=== PATIENT | male | born 1970 | race Caucasian/White ===

== ENCOUNTER 2016-08-15 21:34 | Inpatient (IN) | payer MEDICARE, OTHER ==
[2016-08-15] MEDS ORDERED: Sodium Chloride 0.9% 1,000 ML IV ONE (22:37)
--- NOTE | 2016-08-15 22:42 | C.PDOC ---
History Of Present Illness 46 year old pt with a history of hypertension and diabetes, presents to the ED with c/o of abdominal pain and x4 episodes of hematemesis today. Pt denies any blood in stool, fever, chills, or any other complaints. Time Seen by Provider: 08/15/16 22:27 Chief Complaint (Nursing): GI Problem History Per: Patient History/Exam Limitations: no limitations Onset/Duration Of Symptoms: Hrs Current Symptoms Are (Timing): Still Present Severity: Mild Associated Symptoms: Vomiting. denies: Fever, Chills Past Medical History Reviewed: Historical Data, Nursing Documentation, Vital Signs Vital Signs: Last Vital Signs Temp 98.5 F 08/15/16 21:49 Pulse 100 H 08/15/16 21:49 Resp 20 08/15/16 21:49 BP 142/92 H 08/15/16 21:49 Pulse Ox 98 08/15/16 23:23 - Medical History PMH: Diabetes, HTN, Hypercholesterolemia Family History: States: Unknown Family Hx - Social History Hx Tobacco Use: No Hx Alcohol Use: No Hx Substance Use: No - Immunization History Hx Tetanus Toxoid Vaccination: No Hx Influenza Vaccination: No Hx Pneumococcal Vaccination: No Review Of Systems Except As Marked, All Systems Reviewed And Found Negative. Constitutional: Negative for: Fever, Chills Gastrointestinal: Positive for: Vomiting, Abdominal Pain (Hematemesis 4x) Physical Exam - Physical Exam Appears: Non-toxic, No Acute Distress Skin: Warm, Dry Head: Atraumatic, Normacephalic Eye(s): bilateral: Normal Inspection Oral Mucosa: Moist Neck: Normal ROM, Supple Chest: Symmetrical Cardiovascular: Rhythm Regular, No Murmur Respiratory: Normal Breath Sounds, No Accessory Muscle Use, No Rales, No Rhonchi , No Wheezing Gastrointestinal/Abdominal: Soft, Tenderness (Epigastric tenderness), No Guarding, No Rebound Neurological/Psych: Oriented x3, Normal Speech, Normal Cognition ED Course And Treatment - Laboratory Results Result Diagrams: 08/15/16 22:40 08/15/16 22:40 O2 Sat by Pulse Oximetry: 98 (Room air) Pulse Ox Interpretation: Normal Medical Decision Making Medical Decision Making: Labs and chest X-Ray were ordered and reviewed. Pt was given Pantoprazole and IV fluids. 1240 h/h stable. rectal minimal stool, neg, pt had episode of er with blood tinged emesis. dr huma gonzalez, advises does not admit to [facility]. dr karina mortensen. paged Disposition - Disposition Disposition: HOSPITALIZED Disposition Time: 00:37 Condition: FAIR - Clinical Impression Clinical Impression: GI bleed - Scribe Statement The provider has reviewed the documentation as recorded by the Scribe zain glass All medical record entries made by the Scribe were at my direction and personally dictated by me. I have reviewed the chart and agree that the record accurately reflects my personal performance of the history, physical exam, medical decision making, and the department course for this patient. I have also personally directed, reviewed, and agree with the discharge instructions and disposition. Decision To Admit - Pt Status Changed To: Hospital Disposition Of: Inpatient - Admit Certification Admit to Inpatient:: After my assessment, the patient will require hospitalization for at least two midnights. This is because of the severity of symptoms shown, intensity of services needed, and/or the medical risk in this patient being treated as an outpatient. - InPatient: Physician Admission Certification:: pt with gi bleed, needs gi eval - . Bed Request Type: Telemetry Admitting Physician: Destiny Moretnsen Patient Diagnosis: GI bleed
[2016-08-15 22:54] LABS: BASO # 0.1 K/uL (0.0-0.2); BASO % 0.8 % (0.0-2.0); EOS # 0.1 K/uL (0.0-0.7); EOS % 1.2 % (0.0-4.0); HEMATOCRIT 47.2 % (35.0-51.0); LYMPH # 1.8 K/uL (1.0-4.3); LYMPH % 19.5 % (20.0-40.0); MEAN CORPUSCULAR HEMOGLOBIN 29.8 pg (27.0-31.0); MEAN CORPUSCULAR HGB CONC 33.7 g/dL (33.0-37.0); MEAN PLATELET VOLUME 8.4 fL (7.2-11.7); MONO # 0.6 K/uL (0.0-0.8); MONO % 6.2 % (0.0-10.0); RED CELL DISTRIBUTION WIDTH 13.7 % (11.5-14.5); WHITE BLOOD COUNT 9.4 K/uL (4.8-10.8)
[2016-08-15 22:55] LABS: MEAN CELL VOLUME 88.4 fL (80.0-94.0)
[2016-08-15 22:59] LABS: INR 1.1
[2016-08-15] MEDS ORDERED: Sodium Chloride 0.9% 1,000 ML ONE (23:01)
[2016-08-15 23:09] LABS: ALB/GLOB RATIO 1.2 (1.0-2.1); BILIRUBIN,TOTAL 0.9 mg/dL (0.2-1.3); CALCIUM 9.7 mg/dl (8.6-10.4); TOTAL PROTEIN 8.9 g/dL (6.3-8.3)
[2016-08-16] MEDS ORDERED: Pantoprazole 80 MG in Sodium Chloride 0.9% 100 ML IVP SCH (00:45)
[2016-08-16] MEDS ORDERED: Dextrose 5%/0.45% NS 1,000 ML IV ONE (02:16)
[2016-08-16] MEDS: Dextrose 5%/0.45% NS 1,000 ML IV SCH ×2 (02:28→15:46)
[2016-08-16 02:53] LABS: RBC URINE < 1 /hpf (0-3); URINE BILIRUBIN NEGATIVE (NEGATIVE); URINE BLOOD NEGATIVE (NEGATIVE); URINE COLOR Yellow (YELLOW); URINE GLUCOSE (UA) NORMAL (Normal); URINE KETONE NEGATIVE (NEGATIVE); URINE LEUKOCYTE ESTERASE NEG Leu/uL (Negative); URINE PROTEIN 1+ mg/dL (NEGATIVE); URINE UROBILINOGEN NORMAL mg/dL (0.2-1.0); WBC URINE 1 /hpf (0-5)
--- NOTE | 2016-08-16 08:37 | CP.PCM.CON ---
<Tootie Fermin - Last Filed: 08/16/16 09:16> History of Present Illness - History of Present Illness History of Present Illness: Gastroenterology Fellow/PGY4 Consult Note 46 year old male with history of Diabetes, Hypertension, Hyperlipidemia, and Chronic Kidney disease presenting with abdominal pain and vomiting. Patient describes intermittent epigastric pain for two weeks with associated nausea and intermittent vomitus. Yesterday the pain progressive to constant occurrence with severe discomfort associated with four episodes of hematemesis. Since in ER he has vomited about 10 ounces of light brown transparent fluid. Epigastric pain is described as "hurting", pain scale 8-9/10. Associated loss of appetite. Denies heartburn, indigestion, bloating, acid reflux, dysphagia, odynophagia, globus sensation, weight loss, diarrhea, constipation, hematochezia, or melena. Denies alcohol or NSAIDs use. Denies sick contacts or recent antibiotics. No prior EGD or colonoscopy. Family- denies colon cancer, stomach cancer Social-denies tobacco, alcohol, illicit drug use Surgery- head surgery (craniotomy?) Review of Systems - Review of Systems Review of Systems: A 12-point review of systems negative except for as above Past Patient History - Past Social History Smoking Status: Never Smoked - CARDIAC Hx Hypercholesterolemia: Yes Hx Hypertension: Yes - ENDOCRINE/METABOLIC Hx Diabetes Mellitus Type 2: Yes - PSYCHIATRIC Hx Substance Use: No - SURGICAL HISTORY Other/Comment: cardiac surgery. cerebral shunt. lung surgery Meds Allergies/Adverse Reactions: Allergies Allergy/AdvReac Type Severity Reaction Status Date / Time No Known Allergies Allergy Verified 08/15/16 21:49 - Medications Medications: Current Medications Amlodipine Besylate (Norvasc) 5 mg PO DAILY [facility] Pantoprazole Sodium 80 mg/ (Sodium Chloride) 100 mls @ 10 mls/hr IVP .Q10H [facility] PRN Reason: 8 MG/HR Last Admin: 08/16/16 01:21 Dose: 10 mls/hr Dextrose/Sodium Chloride (Dextrose 5%/0.45% Ns 1000 Ml) 1,000 mls @ 75 mls/hr IV .[id number] [facility] Last Admin: 08/16/16 02:28 Dose: 75 mls/hr Insulin Aspart (Novolog) 0 unit SC ACHS [facility] PRN Reason: Protocol Lisinopril (Zestril) 40 mg PO DAILY [facility] Pantoprazole Sodium (Protonix Inj) 40 mg IVP DAILY [facility] Physical Exam - Constitutional Appears: Non-toxic, No Acute Distress - Head Exam Head Exam: ATRAUMATIC, NORMOCEPHALIC - Eye Exam Eye Exam: Conjunctival injection, EOMI, PERRL Pupil Exam: PERRL. absent: Miosis, Mydriatic - ENT Exam ENT Exam: Mucous Membranes Moist, Normal Oropharynx - Neck Exam Neck exam: Positive for: Full Rom, Normal Inspection - Respiratory Exam Respiratory Exam: Clear to Auscultation Bilateral. absent: Rales, Rhonchi, Wheezes - Cardiovascular Exam Cardiovascular Exam: RRR, +S1, +S2. absent: Gallop, Rubs - GI/Abdominal Exam GI & Abdominal Exam: Normal Bowel Sounds, Soft, Tenderness. absent: Distended, Firm, Organomegaly, Rebound Additional comments: epigastric pain to palpation - Extremities Exam Extremities exam: Positive for: full ROM. Negative for: pedal edema - Neurological Exam Neurological exam: Alert - Psychiatric Exam Psychiatric exam: Normal Affect, Normal Mood - Skin Skin Exam: Dry, Intact, Normal Color, Warm Results - Vital Signs Recent Vital Signs: Last Vital Signs Temp 99 F 08/16/16 07:15 Pulse 98 H 08/16/16 07:15 Resp 16 08/16/16 07:15 BP 127/95 H 08/16/16 07:15 Pulse Ox 98 08/16/16 07:15 - Labs Result Diagrams: 08/15/16 22:40 08/15/16 22:40 Labs: Laboratory Results - last 24 hr 08/16/16 07:16 POC Glucose (mg/dL) 98 Assessment & Plan - Assessment and Plan (Free Text) Assessment: 46 year old male with history of Diabetes, Hypertension, Hyperlipidemia, and Chronic kidney disease presenting with epigastric pain and hematemesis. Laboratory findings with likely hemoconcentration, dehydration, and renal insufficiency on chronic kidney disease. No prior EGD or colonoscopy. Plan: >concern for upper GI bleed: Jasmin-Valerio tear, PUD, Gastritis >continue PPI gtt >H/H with likely hemoconcentration due to dehydration and recurrent vomitus >continue IVFs-LANA on CKD, volume resuscitation >NPO >EGD this AM >further recommendations after EGD <Yakov Sheppard - Last Filed: 08/16/16 09:28> Meds - Medications Medications: Current Medications Amlodipine Besylate (Norvasc) 5 mg PO DAILY [facility] Pantoprazole Sodium 80 mg/ (Sodium Chloride) 100 mls @ 10 mls/hr IVP .Q10H [facility] PRN Reason: 8 MG/HR Last Admin: 08/16/16 01:21 Dose: 10 mls/hr Dextrose/Sodium Chloride (Dextrose 5%/0.45% Ns 1000 Ml) 1,000 mls @ 75 mls/hr IV .[id number] [facility] Last Admin: 08/16/16 02:28 Dose: 75 mls/hr Insulin Aspart (Novolog) 0 unit SC ACHS [facility] PRN Reason: Protocol Lisinopril (Zestril) 40 mg PO DAILY [facility] Pantoprazole Sodium (Protonix Inj) 40 mg IVP DAILY [facility] Results - Vital Signs Recent Vital Signs: Last Vital Signs Temp 99 F 08/16/16 07:15 Pulse 98 H 08/16/16 07:15 Resp 16 08/16/16 07:15 BP 127/95 H 08/16/16 07:15 Pulse Ox 98 08/16/16 07:15 - Labs Result Diagrams: 08/15/16 22:40 08/15/16 22:40 Labs: Laboratory Results - last 24 hr 08/16/16 07:16 POC Glucose (mg/dL) 98 Attending/Attestation - Attestation I have personally seen and examined this patient.: Yes I have fully participated in the care of the patient.: Yes I have reviewed all pertinent clinical information: Yes Notes (Text): Patient seen and examined with GI fellow. Agree with her note as documented above with the following additions/exceptions. This is a 46 year old male with h/o HTN, DM, renal insufficiency who presents with complaint of epigastric abdominal pain and episodes of hematemesis. He reports having intermittent abdominal pain for the past several weeks that worsened over the past few days and was associated with multiple episodes of emesis, some mixed with blood. Most recent emesis in ER was brown in color. He still complains of abdominal pain. No antecedent history of GI bleeding/heavy NSAID use/chronic liver disease. He has never had prior endoscopic evaluation. His laboratory examination shows Hb 15 (likely hemoconcentrated) with acute on chronic renal insufficiency and electrolyte disturbance with hypochlorhydria. He appears relatively comfortable at this time, but is slightly tachycardic. Continue supportive care, IV PPI, IVF hydration, monitor H/H, monitor for rebleeding. Keep NPO, will plan for EGD evaluation today, r/o MWT, PUD, gastritis, etc. Further recommendations pending clinical course. 08/16/16 09:23
--- NOTE | 2016-08-16 09:53 | US ---
PROCEDURE: Ultrasound of the Kidneys HISTORY: GI BLEED COMPARISON: None available. TECHNIQUE: Sonogram of the kidneys. FINDINGS: RIGHT KIDNEY: Measures: 9.7 cm. Normal in size, contour and echogenicity. No stone, solid mass lesion or hydronephrosis visualized. LEFT KIDNEY: Measures: 9.7 cm. Normal in size, contour and echogenicity. No stone, solid mass lesion or hydronephrosis visualized. OTHER FINDINGS: None. IMPRESSION: Normal examination.
--- NOTE | 2016-08-16 10:24 | RAD ---
HISTORY: abd pain COMPARISON: None available. TECHNIQUE: Chest, one view. FINDINGS: Right-sided catheter projects over the soft tissues of the right neck and chest appearing to terminate in the cavoatrial junction utilizing an IJ approach. LUNGS: No focal consolidation. Please note that chest x-ray has limited sensitivity for the detection of pulmonary masses. PLEURA: No significant pleural effusion identified. No definite pneumothorax . CARDIOVASCULAR: Median sternotomy wires. Heart size appears within normal limits. Mild prominence of the mediastinum may reflect uncoiled aorta; alternatives including adenopathy are not excluded. OSSEOUS STRUCTURES: Degenerative changes. VISUALIZED UPPER ABDOMEN: Unremarkable. OTHER FINDINGS: None. IMPRESSION: Right-sided catheter projects over the soft tissues of the right neck and chest appearing to terminate in the cavoatrial junction utilizing an IJ approach. Correlate clinically. Mild prominence of the mediastinum may reflect uncoiled aorta; alternatives including adenopathy are not excluded.
[2016-08-16] MEDS ORDERED: Lactated Ringer's 500 ML IV ONE (13:43)
[2016-08-16] MEDS ORDERED: Propofol 10 mg/ml Inj (20 ML) ONE (13:47)
--- NOTE | 2016-08-16 14:06 | CP.PCM.PN ---
Subjective - Date & Time of Evaluation Date of Evaluation: 08/16/16 Time of Evaluation: 14:04 - Subjective Subjective: Patient s/p EGD today showing gastritis, 3 superficial clean based ulcers in gastric fundus along with erosions. Objective - Vital Signs/Intake and Output Vital Signs (last 24 hours): Temp Pulse Resp BP Pulse Ox 99 F 112 H 16 122/91 H 99 08/16/16 13:47 08/16/16 13:47 08/16/16 13:47 08/16/16 13:47 08/16/16 13:47 - Medications Medications: Current Medications Amlodipine Besylate (Norvasc) 5 mg PO DAILY [facility] Dextrose/Sodium Chloride (Dextrose 5%/0.45% Ns 1000 Ml) 1,000 mls @ 75 mls/hr IV .[id number] [facility] Last Admin: 08/16/16 02:28 Dose: 75 mls/hr Lactated Ringer's (Lactated Ringer's) 1,000 mls @ 100 mls/hr IV .Q10H [facility] Insulin Aspart (Novolog) 0 unit SC ACHS [facility] PRN Reason: Protocol Lisinopril (Zestril) 40 mg PO DAILY [facility] Pantoprazole Sodium (Protonix Ec Tab) 40 mg PO DAILY [facility] - Labs Labs: PT 12.6 SECONDS (9.7-12.2) H 08/15/16 22:40 INR 1.1 08/15/16 22:40 APTT 32 SECONDS (21-34) 08/15/16 22:40 Assessment and Plan - Assessment and Plan (Free Text) Assessment: DM HTN Hyperlipidemia Hematemesis - s/p EGD showing 3 gastric fundus ulcers with linear erosions, no active bleeding on examination Plan: - Advance diet as tolerated - Follow up biopsy results - Oral PPI therapy once daily for one month - NSAID avoidance - Anti-emetic therapy PRN - Suggest repeat EGD within 2 months to ensure ulcer healing. No ongoing GI issues will sign off case. Please reconsult as necessary, thank you.
[2016-08-16] MEDS ORDERED: Lactated Ringer's 1,000 ML IV SCH (14:15)
[2016-08-16] MEDS: (Novolog) Insulin Aspart, Recombinant 100 u/ml 10 ml vial SC SCH ×2 (16:42→22:22)
--- NOTE | 2016-08-16 18:20 | CP.PCM.PN ---
Subjective - Date & Time of Evaluation Date of Evaluation: 08/16/16 Time of Evaluation: 02:20 - Subjective Subjective: clinically same Objective - Vital Signs/Intake and Output Vital Signs (last 24 hours): Temp Pulse Resp BP Pulse Ox 97.3 F L 83 20 133/91 H 96 08/16/16 15:33 08/16/16 15:33 08/16/16 15:33 08/16/16 15:33 08/16/16 15:33 - Medications Medications: Current Medications Amlodipine Besylate (Norvasc) 5 mg PO DAILY [facility] Dextrose/Sodium Chloride (Dextrose 5%/0.45% Ns 1000 Ml) 1,000 mls @ 75 mls/hr IV .[id number] [facility] Last Admin: 08/16/16 15:46 Dose: 75 mls/hr Lactated Ringer's (Lactated Ringer's) 1,000 mls @ 100 mls/hr IV .Q10H [facility] Insulin Aspart (Novolog) 0 unit SC ACHS [facility] PRN Reason: Protocol Last Admin: 08/16/16 16:42 Dose: Not Given Lisinopril (Zestril) 40 mg PO DAILY [facility] Pantoprazole Sodium (Protonix Ec Tab) 40 mg PO DAILY [facility] - Labs Labs: PT 12.6 SECONDS (9.7-12.2) H 08/15/16 22:40 INR 1.1 08/15/16 22:40 APTT 32 SECONDS (21-34) 08/15/16 22:40 - Constitutional Appears: Well - Head Exam Head Exam: ATRAUMATIC, NORMAL INSPECTION, NORMOCEPHALIC - Eye Exam Eye Exam: EOMI, Normal appearance, PERRL Pupil Exam: NORMAL ACCOMODATION, PERRL - ENT Exam ENT Exam: Mucous Membranes Moist, Normal Exam - Neck Exam Neck Exam: Full ROM, Normal Inspection. absent: Lymphadenopathy - Respiratory Exam Respiratory Exam: Decreased Breath Sounds - Cardiovascular Exam Cardiovascular Exam: REGULAR RHYTHM, +S1, +S2 - GI/Abdominal Exam GI & Abdominal Exam: Soft, Diminished Bowel Sounds - Rectal Exam Rectal Exam: Deferred
[2016-08-16 21:52] LABS: BASO # 0.1 K/uL (0.0-0.2); BASO % 1.4 % (0.0-2.0); EOS # 0.6 K/uL (0.0-0.7); EOS % 7.5 % (0.0-4.0); HEMATOCRIT 45.6 % (35.0-51.0); LYMPH # 2.7 K/uL (1.0-4.3); LYMPH % 33.8 % (20.0-40.0); MEAN CELL VOLUME 88.1 fL (80.0-94.0); MEAN CORPUSCULAR HEMOGLOBIN 30.2 pg (27.0-31.0); MEAN CORPUSCULAR HGB CONC 34.3 g/dL (33.0-37.0); MEAN PLATELET VOLUME 8.4 fL (7.2-11.7); MONO # 0.9 K/uL (0.0-0.8); MONO % 10.8 % (0.0-10.0); NRBC % 0.2 % (0.0-2.0); RED CELL DISTRIBUTION WIDTH 13.3 % (11.5-14.5)
--- NOTE | 2016-08-16 22:49 | CP.PCM.HP ---
Past Patient History - Past Medical History & Family History Past Medical History?: Yes - Past Social History Smoking Status: Never Smoked - CARDIAC Hx Hypercholesterolemia: Yes Hx Hypertension: Yes - ENDOCRINE/METABOLIC Hx Diabetes Mellitus Type 2: Yes - MUSCULOSKELETAL/RHEUMATOLOGICAL Hx Falls: No - PSYCHIATRIC Hx Substance Use: No - SURGICAL HISTORY Other/Comment: cardiac surgery. cerebral shunt. lung surgery - ANESTHESIA Hx Anesthesia: Yes Hx Anesthesia Reactions: No Meds Allergies/Adverse Reactions: Allergies Allergy/AdvReac Type Severity Reaction Status Date / Time No Known Allergies Allergy Verified 08/15/16 21:49 Results - Vital Signs Recent Vital Signs: Last Vital Signs Temp 97.3 F L 08/16/16 15:33 Pulse 83 08/16/16 15:33 Resp 20 08/16/16 15:33 BP 133/91 H 08/16/16 15:33 Pulse Ox 96 08/16/16 15:33 - Labs Result Diagrams: 08/16/16 21:43 08/15/16 22:40 Labs: Laboratory Results - last 24 hr 08/16/16 08/16/16 08/16/16 07:16 13:38 16:27 WBC RBC Hgb Hct MCV MCH MCHC RDW Plt Count MPV Neut % (Auto) Lymph % (Auto) [place] % (Auto) Eos % (Auto) Baso % (Auto) Neut # Lymph # [place] # Eos # Baso # POC Glucose (mg/dL) 98 103 146 H 08/16/16 08/16/16 21:43 22:18 WBC 8.0 RBC 5.18 Hgb 15.6 Hct 45.6 MCV 88.1 MCH 30.2 MCHC 34.3 RDW 13.3 Plt Count 247 MPV 8.4 Neut % (Auto) 46.5 L Lymph % (Auto) 33.8 [place] % (Auto) 10.8 H Eos % (Auto) 7.5 H Baso % (Auto) 1.4 Neut # 3.7 Lymph # 2.7 Morehouse # 0.9 H Eos # 0.6 Baso # 0.1 POC Glucose (mg/dL) 118 H
[2016-08-17] MEDS: Dextrose 5%/0.45% NS 1,000 ML IV SCH ×3 (06:00→21:52)
[2016-08-17] MEDS: (Novolog) Insulin Aspart, Recombinant 100 u/ml 10 ml vial SC SCH ×4 (08:14→21:56)
[2016-08-17] MEDS: Pantoprazole 40 mg EC Tab PO SCH (09:03)
[2016-08-17 12:01] LABS: BASO # 0.1 K/uL (0.0-0.2); BASO % 1.7 % (0.0-2.0); EOS # 0.7 K/uL (0.0-0.7); EOS % 8.9 % (0.0-4.0); HEMATOCRIT 46.6 % (35.0-51.0); LYMPH # 2.4 K/uL (1.0-4.3); LYMPH % 32.1 % (20.0-40.0); MEAN CELL VOLUME 89.4 fL (80.0-94.0); MEAN CORPUSCULAR HEMOGLOBIN 29.9 pg (27.0-31.0); MEAN CORPUSCULAR HGB CONC 33.4 g/dL (33.0-37.0); MEAN PLATELET VOLUME 8.6 fL (7.2-11.7); MONO # 0.6 K/uL (0.0-0.8); MONO % 8.5 % (0.0-10.0); NRBC % 0.1 % (0.0-2.0); RED CELL DISTRIBUTION WIDTH 13.4 % (11.5-14.5); WHITE BLOOD COUNT 7.5 K/uL (4.8-10.8)
--- NOTE | 2016-08-17 13:13 | CP.PCM.PN ---
Subjective - Date & Time of Evaluation Date of Evaluation: 08/17/16 Time of Evaluation: 01:20 - Subjective Subjective: clinically same Objective - Vital Signs/Intake and Output Vital Signs (last 24 hours): Temp Pulse Resp BP Pulse Ox 98.2 F 99 H 20 143/95 H 97 08/17/16 08:32 08/17/16 08:32 08/17/16 08:32 08/17/16 08:32 08/17/16 08:32 Intake and Output: 08/17/16 08/17/16 06:59 18:59 Intake Total 1620 Balance 1620 - Medications Medications: Current Medications Amlodipine Besylate (Norvasc) 5 mg PO DAILY [facility] Last Admin: 08/17/16 09:03 Dose: 5 mg Dextrose/Sodium Chloride (Dextrose 5%/0.45% Ns 1000 Ml) 1,000 mls @ 75 mls/hr IV .[id number] [facility] Last Admin: 08/17/16 06:00 Dose: 75 mls/hr Lactated Ringer's (Lactated Ringer's) 1,000 mls @ 100 mls/hr IV .Q10H [facility] Influenza Virus Vaccine (Afluria) 45 mcg IM .ONCE ONE Stop: 08/18/16 10:01 Insulin Aspart (Novolog) 0 unit SC ACHS [facility] PRN Reason: Protocol Last Admin: 08/17/16 12:14 Dose: 3 unit Lisinopril (Zestril) 40 mg PO DAILY [facility] Last Admin: 08/17/16 09:03 Dose: 40 mg Ondansetron HCl (Zofran Inj) 4 mg IVP Q6H [facility] PRN Reason: Nausea/Vomiting Last Admin: 08/17/16 12:18 Dose: 4 mg Pantoprazole Sodium (Protonix Ec Tab) 40 mg PO DAILY [facility] Last Admin: 08/17/16 09:03 Dose: 40 mg Temazepam (Restoril) 15 mg PO HS PRN PRN Reason: insomia Last Admin: 08/16/16 22:29 Dose: 15 mg - Labs Labs: 08/17/16 11:00 PT 12.6 SECONDS (9.7-12.2) H 08/15/16 22:40 INR 1.1 08/15/16 22:40 APTT 32 SECONDS (21-34) 03/21/17 22:40 - Constitutional Appears: Well - Head Exam Head Exam: ATRAUMATIC, NORMAL INSPECTION, NORMOCEPHALIC - Eye Exam Eye Exam: EOMI, Normal appearance, PERRL Pupil Exam: NORMAL ACCOMODATION, PERRL - ENT Exam ENT Exam: Mucous Membranes Moist, Normal Exam - Neck Exam Neck Exam: Full ROM, Normal Inspection. absent: Lymphadenopathy - Respiratory Exam Respiratory Exam: Decreased Breath Sounds - Cardiovascular Exam Cardiovascular Exam: REGULAR RHYTHM, +S1, +S2 - GI/Abdominal Exam GI & Abdominal Exam: Soft, Diminished Bowel Sounds - Rectal Exam Rectal Exam: Deferred Assessment and Plan - Assessment and Plan (Free Text) Plan: cbccmp stable tomorrow will discharge pt nicolasa as ordered no more bleeding will get clerance from gi
[2016-08-18 07:29] LABS: BASO # 0.1 K/uL (0.0-0.2); BASO % 1.5 % (0.0-2.0); EOS # 0.9 K/uL (0.0-0.7); EOS % 13.4 % (0.0-4.0); HEMATOCRIT 44.8 % (35.0-51.0); LYMPH # 2.4 K/uL (1.0-4.3); LYMPH % 34.7 % (20.0-40.0); MEAN CELL VOLUME 88.5 fL (80.0-94.0); MEAN CORPUSCULAR HGB CONC 33.9 g/dL (33.0-37.0); MEAN PLATELET VOLUME 8.3 fL (7.2-11.7); MONO # 0.7 K/uL (0.0-0.8); MONO % 10.2 % (0.0-10.0); NRBC % 0.2 % (0.0-2.0); RED CELL DISTRIBUTION WIDTH 13.5 % (11.5-14.5)
[2016-08-18] MEDS: (Novolog) Insulin Aspart, Recombinant 100 u/ml 10 ml vial SC SCH ×4 (08:00→22:27)
[2016-08-18] MEDS ORDERED: Influenza Virus Vaccine 45 mcg/0.5 ml Syr IM ONE (10:00)
[2016-08-18] MEDS: Pantoprazole 40 mg EC Tab PO SCH (10:18)
--- NOTE | 2016-08-18 10:49 | CP.PCM.PN ---
Subjective - Date & Time of Evaluation Date of Evaluation: 08/18/16 Time of Evaluation: 12:40 - Subjective Subjective: clinically same Objective - Vital Signs/Intake and Output Vital Signs (last 24 hours): Temp Pulse Resp BP Pulse Ox 98.2 F 92 H 20 123/86 96 08/17/16 23:45 08/18/16 07:30 08/17/16 23:45 08/17/16 23:45 08/17/16 23:45 Intake and Output: 08/18/16 08/18/16 06:59 18:59 Intake Total 1700 Output Total 1600 Balance 100 - Medications Medications: Current Medications Amlodipine Besylate (Norvasc) 5 mg PO DAILY [facility] Last Admin: 08/18/16 10:19 Dose: 5 mg Dextrose/Sodium Chloride (Dextrose 5%/0.45% Ns 1000 Ml) 1,000 mls @ 75 mls/hr IV .[id number] [facility] Last Admin: 08/17/16 21:52 Dose: 75 mls/hr Lactated Ringer's (Lactated Ringer's) 1,000 mls @ 100 mls/hr IV .Q10H [facility] Insulin Aspart (Novolog) 0 unit SC ACHS [facility] PRN Reason: Protocol Last Admin: 08/18/16 08:00 Dose: 1 unit Lisinopril (Zestril) 40 mg PO DAILY [facility] Last Admin: 08/18/16 10:19 Dose: 40 mg Ondansetron HCl (Zofran Inj) 4 mg IVP Q6H PRN PRN Reason: Nausea/Vomiting Last Admin: 08/18/16 06:37 Dose: 4 mg Pantoprazole Sodium (Protonix Ec Tab) 40 mg PO DAILY [facility] Last Admin: 08/18/16 10:18 Dose: 40 mg Temazepam (Restoril) 15 mg PO HS PRN PRN Reason: insomia Last Admin: 08/17/16 23:01 Dose: 15 mg - Labs Labs: 08/18/16 07:23 PT 12.6 SECONDS (9.7-12.2) H 08/15/16 22:40 INR 1.1 08/15/16 22:40 APTT 32 SECONDS (21-34) 08/15/16 22:40 - Constitutional Appears: Well - Head Exam Head Exam: ATRAUMATIC, NORMAL INSPECTION, NORMOCEPHALIC - Eye Exam Eye Exam: EOMI, Normal appearance, PERRL Pupil Exam: NORMAL ACCOMODATION, PERRL - ENT Exam ENT Exam: Mucous Membranes Moist, Normal Exam - Neck Exam Neck Exam: Full ROM, Normal Inspection. absent: Lymphadenopathy - Respiratory Exam Respiratory Exam: Decreased Breath Sounds - Cardiovascular Exam Cardiovascular Exam: REGULAR RHYTHM, +S1, +S2 - GI/Abdominal Exam GI & Abdominal Exam: Soft, Diminished Bowel Sounds - Rectal Exam Rectal Exam: Deferred
[2016-08-18 20:33] LABS: BASO # 0.1 K/uL (0.0-0.2); BASO % 1.1 % (0.0-2.0); EOS % 12.9 % (0.0-4.0); HEMATOCRIT 44.9 % (35.0-51.0); LYMPH # 2.3 K/uL (1.0-4.3); LYMPH % 30.3 % (20.0-40.0); MEAN CELL VOLUME 88.4 fL (80.0-94.0); MEAN CORPUSCULAR HEMOGLOBIN 29.5 pg (27.0-31.0); MEAN CORPUSCULAR HGB CONC 33.4 g/dL (33.0-37.0); MEAN PLATELET VOLUME 8.9 fL (7.2-11.7); MONO # 0.7 K/uL (0.0-0.8); MONO % 9.6 % (0.0-10.0); RED CELL DISTRIBUTION WIDTH 13.5 % (11.5-14.5); WHITE BLOOD COUNT 7.4 K/uL (4.8-10.8)
[2016-08-18] MEDS: Dextrose 5%/0.45% NS 1,000 ML IV SCH (21:40)
[2016-08-19] MEDS: Dextrose 5%/0.45% NS 1,000 ML IV SCH (05:40)
[2016-08-19 07:32] LABS: BASO # 0.1 K/uL (0.0-0.2); BASO % 0.8 % (0.0-2.0); EOS # 1.2 K/uL (0.0-0.7); HEMATOCRIT 46.6 % (35.0-51.0); LYMPH # 2.8 K/uL (1.0-4.3); LYMPH % 30.8 % (20.0-40.0); MEAN CELL VOLUME 88.2 fL (80.0-94.0); MEAN CORPUSCULAR HGB CONC 34.1 g/dL (33.0-37.0); MEAN PLATELET VOLUME 8.6 fL (7.2-11.7); MONO # 0.9 K/uL (0.0-0.8); MONO % 9.5 % (0.0-10.0); NRBC % 0.1 % (0.0-2.0); RED CELL DISTRIBUTION WIDTH 13.6 % (11.5-14.5); WHITE BLOOD COUNT 9.2 K/uL (4.8-10.8)
[2016-08-19] MEDS: (Novolog) Insulin Aspart, Recombinant 100 u/ml 10 ml vial SC SCH ×2 (07:40→14:12)
[2016-08-19 07:51] LABS: POTASSIUM 4.5 mmol/L (3.6-5.2)
[2016-08-19 07:55] LABS: CALCIUM 8.9 mg/dl (8.6-10.4)
[2016-08-19] MEDS: Pantoprazole 40 mg EC Tab PO SCH (09:51)
--- NOTE | 2016-08-19 15:03 | CP.PCM.PN ---
Subjective - Date & Time of Evaluation Date of Evaluation: 08/19/16 Time of Evaluation: 11:20 - Subjective Subjective: clinically same Objective - Vital Signs/Intake and Output Vital Signs (last 24 hours): Temp Pulse Resp BP Pulse Ox 97.8 F 78 17 123/86 97 08/19/16 07:05 08/19/16 07:40 08/19/16 07:05 08/19/16 07:05 08/19/16 07:05 Intake and Output: 08/19/16 08/19/16 06:59 18:59 Intake Total 600 Output Total 700 Balance -100 - Medications Medications: Current Medications Amlodipine Besylate (Norvasc) 5 mg PO DAILY [facility] Last Admin: 08/19/16 09:52 Dose: 5 mg Lactated Ringer's (Lactated Ringer's) 1,000 mls @ 100 mls/hr IV .Q10H [facility] Insulin Aspart (Novolog) 0 unit SC ACHS [facility] PRN Reason: Protocol Last Admin: 08/19/16 14:12 Dose: 2 unit Lisinopril (Zestril) 40 mg PO DAILY [facility] Last Admin: 08/19/16 09:52 Dose: 40 mg Ondansetron HCl (Zofran Inj) 4 mg IVP Q6H [facility] PRN Reason: Nausea/Vomiting Last Admin: 08/19/16 06:40 Dose: 4 mg Pantoprazole Sodium (Protonix Ec Tab) 40 mg PO DAILY [facility] Last Admin: 08/19/16 09:51 Dose: 40 mg Temazepam (Restoril) 15 mg PO HS PRN PRN Reason: insomia Last Admin: 08/18/16 21:41 Dose: 15 mg - Labs Labs: 08/19/16 07:21 08/19/16 07:21 PT 12.6 SECONDS (9.7-12.2) H 08/15/16 22:40 INR 1.1 08/15/16 22:40 APTT 32 SECONDS (21-34) 08/15/16 22:40 - Constitutional Appears: Well - Head Exam Head Exam: ATRAUMATIC, NORMAL INSPECTION, NORMOCEPHALIC - Eye Exam Eye Exam: EOMI, Normal appearance, PERRL Pupil Exam: NORMAL ACCOMODATION, PERRL - ENT Exam ENT Exam: Mucous Membranes Moist, Normal Exam - Neck Exam Neck Exam: Full ROM, Normal Inspection. absent: Lymphadenopathy - Respiratory Exam Respiratory Exam: Decreased Breath Sounds - Cardiovascular Exam Cardiovascular Exam: REGULAR RHYTHM, +S1, +S2 - GI/Abdominal Exam GI & Abdominal Exam: Soft, Diminished Bowel Sounds - Rectal Exam Rectal Exam: Deferred
--- NOTE | 2016-08-19 15:19 | CP.PCM.PN ---
Subjective - Date & Time of Evaluation Date of Evaluation: 08/19/16 Time of Evaluation: 15:17 - Subjective Subjective: Continue all home meds and Pt given new Rx for Folica acid 1 mg renteria po daily # 30 and Ferrous sulfate 325 mg po daily #[address] Genaro Figueroa. Objective - Vital Signs/Intake and Output Vital Signs (last 24 hours): Temp Pulse Resp BP Pulse Ox 97.8 F 78 17 123/86 97 08/19/16 07:05 08/19/16 07:40 08/19/16 07:05 08/19/16 07:05 08/19/16 07:05 Intake and Output: 08/19/16 08/19/16 06:59 18:59 Intake Total 600 Output Total 700 Balance -100 - Medications Medications: Current Medications Amlodipine Besylate (Norvasc) 5 mg PO DAILY [facility] Last Admin: 08/19/16 09:52 Dose: 5 mg Insulin Aspart (Novolog) 0 unit SC ACHS [facility] PRN Reason: Protocol Last Admin: 08/19/16 14:12 Dose: 2 unit Lisinopril (Zestril) 40 mg PO DAILY [facility] Last Admin: 08/19/16 09:52 Dose: 40 mg Ondansetron HCl (Zofran Inj) 4 mg IVP Q6H PRN PRN Reason: Nausea/Vomiting Last Admin: 08/19/16 06:40 Dose: 4 mg Pantoprazole Sodium (Protonix Ec Tab) 40 mg PO DAILY [facility] Last Admin: 08/19/16 09:51 Dose: 40 mg Temazepam (Restoril) 15 mg PO HS PRN PRN Reason: insomia Last Admin: 08/18/16 21:41 Dose: 15 mg - Labs Labs: 08/19/16 07:21 08/19/16 07:21 PT 12.6 SECONDS (9.7-12.2) H 08/15/16 22:40 INR 1.1 08/15/16 22:40 APTT 32 SECONDS (21-34) 08/15/16 22:40
[2016-08-19 16:15] VITALS: BP 125/88; PULSE 75; RESP 20; TEMP 98.1; O2SAT 98
[2016-08-19] MEDS: Influenza Virus Vaccine 45 mcg/0.5 ml Syr IM ONE ×2 (16:15→16:36)
--- NOTE | 2016-08-21 14:44 | PQF GENQUE ---
This form is a permanent part of the medical record Dr. Figueroa, This patient was admitted with hematemesis and epigastric abd. pain. EGD showed a superficial gastric ulcer with diffuse inflammation of the gastric body. Please clarify if there is a relationship between the hematemesis and the ulcer. Also specify if ulcer and or gastritis is acute or chronic in nature. Thank you Clarification of your documentation is requested to better reflect the severity of illness and intensity of treatment of your patient. Indicators present [] Specify: [] [] Specify: [] [] Specify: [] [] Specify: [] Location in the medical record that reflects the above clinical findings: [] Treatment Provided: [] PHYSICIAN'S RESPONSE Based on your medical judgment of the clinical indicators outlined above please clarify the following: [] Practitioner response [] If unable to determine, please check the box, sign and date. Present On Admission (POA) Indicator: [] Present at the time of admission [] Not present at the time of admission [] Clinically Undetermined In responding to this query, please exercise your independent professional judgment. The fact that a question is asked does not imply that any particular answer is desired or expected. Thank you for your clarification on this documentation. 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
== END 2016-08-19 16:45 | disposition home or self-care (01) | DRG 378 ==
LOC: C.ER 21:34 → C.9E 08-16 00:40 → C.6T 08-16 12:31
PROVIDERS: ADMIT Internal Medicine Nephrology; ATTEND Internal Medicine Nephrology
PROC: 0DB68ZX Excision of Stomach, Via Natural or Artificial Opening Endoscopic, Diagnostic (ICD-10-PCS; principal; 2016-08-16 13:49)
DX: K25.0 Acute gastric ulcer with hemorrhage (principal); N17.9 Acute kidney failure, unspecified; E11.22 Type 2 diabetes mellitus with diabetic chronic kidney disease; I12.9 Hypertensive chronic kidney disease with stage 1 through stage 4 chronic kidney disease, or unspecified chronic kidney disease; N18.9 Chronic kidney disease, unspecified; E78.5 Hyperlipidemia, unspecified; E86.0 Dehydration; E78.00 Pure hypercholesterolemia, unspecified; K31.89 Other diseases of stomach and duodenum

== ENCOUNTER 2017-09-14 14:01 | Emergency (ER) | payer MEDICARE ==
[2017-09-14 14:11] VITALS: BP 140/91; PULSE 90; RESP 16; TEMP 97.3; O2SAT 98
--- NOTE | 2017-09-14 15:20 | C.PDOC ---
History Of Present Illness 47 year old male presents to the ED for evaluation of syncopal episode. Patient reports last night after he woke up from sleep, started walking and then fell after which he hit his head. Patient is now c/o headache and neck pain. 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 Patient denies nausea, vomit, diarrhea, weakness, numbness, LOC. - HPI Time Seen by Provider: 09/14/17 14:16 Chief Complaint (Nursing): Trauma History Per: Patient History/Exam Limitations: no limitations Onset/Duration Of Symptoms: Days Injury Occurred (Timing): Hours Ago: Location Of Injury: Right: Head (parietal) Associated Symptoms: Dizziness Recent travel outside of the [place]: No Additional History Per: Patient - Fall Fall:Prior To Injury: Passed Out Past Medical History Reviewed: Historical Data, Nursing Documentation, Vital Signs Vital Signs: Last Vital Signs Temp 97.3 F L 09/14/17 14:09 Pulse 90 09/14/17 14:09 Resp 16 09/14/17 14:09 BP 140/91 H 09/14/17 14:09 Pulse Ox 98 09/14/17 16:53 - Medical History PMH: Diabetes, HTN, Hypercholesterolemia Surgical History: No Surg Hx - [facility] Procedures EXCISION OF STOMACH, ENDO, DIAGN (08/16/16) Family History: States: Unknown Family Hx - Social History Hx Tobacco Use: No Hx Alcohol Use: No Hx Substance Use: No - Immunization History Hx Tetanus Toxoid Vaccination: No Hx Influenza Vaccination: No Hx Pneumococcal Vaccination: No Review Of Systems Constitutional: Negative for: Fever, Chills Eyes: Negative for: Vision Change Cardiovascular: Negative for: Chest Pain Respiratory: Negative for: Shortness of Breath Gastrointestinal: Negative for: Nausea, Vomiting, Abdominal Pain Musculoskeletal: Positive for: Neck Pain Skin: Negative for: Rash Neurological: Positive for: Headache. Negative for: Weakness, Numbness Physical Exam - Physical Exam Appears: Non-toxic, No Acute Distress Skin: Normal Color, Warm, Dry Head: Atraumatic, Normacephalic, Other (CASTING HOUSE WORKER shunt drain placed on right parietal scalp) Eye(s): bilateral: Normal Inspection, PERRL, EOMI Ear(s): Bilateral: Normal Nose: No Discharge Oral Mucosa: Moist Throat: Normal, No Erythema, No Exudate Neck: Normal ROM, Supple Chest: Symmetrical Cardiovascular: Rhythm Regular, No Murmur Respiratory: Normal Breath Sounds, No Rales, No Rhonchi, No Wheezing Gastrointestinal/Abdominal: Soft, No Tenderness, No Guarding, No Rebound Extremity: Normal ROM, No Tenderness, No Swelling Neurological/Psych: Oriented x3, Normal Speech, Normal Motor, Normal Sensation Gait: Steady ED Course And Treatment O2 Sat by Pulse Oximetry: 98 (On RA) Pulse Ox Interpretation: Normal - CT Scan/US Ct head Other Rad Studies (CT/US): Read By Radiologist, Radiology Report Reviewed CT/US Interpretation: PROCEDURE: CT HEAD WITHOUT CONTRAST. HISTORY: head trauma, dizzy, has CASTING HOUSE WORKER shunt in place. COMPARISON: None available. TECHNIQUE: Axial computed tomography images were obtained through the head/brain without intravenous contrast. Radiation dose: Total exam DLP = 1105.68 mGy-cm. This CT exam was performed using one or more of the following dose reduction techniques: Automated exposure control, adjustment of the mA and/or kV according to patient size, and/or use of iterative reconstruction technique. FINDINGS: HEMORRHAGE: No intracranial hemorrhage. BRAIN: No mass effect or edema. Extensive right cerebellar hemispheric encephalomalacia change. Possible old infarct. Right frontal ventriculostomy catheter. . Small old bilateral caudate head lacunar infarcts. Mild chronic periventricular white matter ischemic change. Patchy deep white matter ischemic change. VENTRICLES: Unremarkable. No hydrocephalus. CALVARIUM: Unremarkable. PARANASAL SINUSES: Unremarkable as visualized. No significant inflammatory changes. MASTOID AIR CELLS: Unremarkable as visualized. No inflammatory changes. OTHER FINDINGS: None. IMPRESSION: No intracranial hemorrhage. Old right cerebellar hemispheric encephalomalacia. Right frontal ventriculostomy catheter. Mild chronic white matter ischemic change. CT Cspine Other Rad Studies (CT/US): Read By Radiologist, Radiology Report Reviewed CT/US Interpretation: PROCEDURE: CT Cervical Spine without contrast. HISTORY: trauma, neck pain. COMPARISON: None available. TECHNIQUE: Axial computed tomography images were obtained of the cervical spine without the use of intravenous contrast. Coronal and sagittal reformatted images were created and reviewed. Radiation dose: Total exam DLP = 630.22 mGy-cm. This CT exam was performed using one or more of the following dose reduction techniques: Automated exposure control, adjustment of the mA and/or kV according to patient size, and/or use of iterative reconstruction technique. FINDINGS: VERTEBRAE: Vertebral bodies maintained height. There is straightening of the normal lordotic curvature indicating possible muscular spasm. There is grade 1 retrolisthesis at C5-6 with mild narrowing of the disc space and large anterior osteophytes, consistent with degenerative disc disease. Normal alignment is maintained elsewhere. The remaining intervertebral disc spaces are maintained in height. There are several bony fragment adjacent to the posterior aspect of the C7 spinous process, possibly the result of old ununited fracture fragments or developmental in origin. No evidence of acute fracture. The atlantoaxial articulation and odontoid process are intact. DISCS/SPINAL CANAL/NEURAL FORAMINA: There is mild central spinal stenosis at C4-5 and moderate central spinal stenosis at C5-6. PARASPINAL SOFT TISSUES: Unremarkable. OTHER FINDINGS: None. IMPRESSION: No acute fracture. Probable degenerative retrolisthesis at C5-6 associated with C5-6 degenerative disc disease. Mild central spinal stenosis C4-5 and moderate central spinal stenosis C5-6. Possible old ununited fracture posterior C7 spinous process versus developmental anomaly. Medical Decision Making Medical Decision Making: Plan: * CT head * CT cervical spine * Tylenol 650 mg PO On re-exam, the patient reports improvement of symptoms. Lungs are CTA, heart is RRR. Abdomen is soft, non-tender and is tolerating PO well. Ambulatory in the ED with steady gait. Follow up with the medical doctor/clinic. Return if worsened. Disposition - Disposition Referrals: [facility] [Outside] Disposition: HOME/ ROUTINE Disposition Time: 16:31 Condition: GOOD Additional Instructions: Follow up with the medical doctor within 1-2 days. Return if worsened Prescriptions: Acetaminophen [Tylenol] 325 mg PO Q6 PRN #30 tab PRN Reason: Pain, Mild (1-3) Naproxen [Naprosyn] 500 mg PO BID #20 tab Instructions: Minor Head Injury (DC) Forms: [employer] (Slovak) Print Language: TONGAN - POA Present On Arrival: None - Clinical Impression Clinical Impression: Head injury, Cervical strain - PA / FLARE MAN / Resident Statement MD/DO has reviewed & agrees with the documentation as recorded. - Scribe Statement The provider has reviewed the documentation as recorded by the Scribe Marty Archuleta All medical record entries made by the Scribe were at my direction and personally dictated by me. I have reviewed the chart and agree that the record accurately reflects my personal performance of the history, physical exam, medical decision making, and the department course for this patient. I have also personally directed, reviewed, and agree with the discharge instructions and disposition.
--- NOTE | 2017-09-14 16:05 | CT ---
PROCEDURE: CT HEAD WITHOUT CONTRAST. HISTORY: head trauma, dizzy, has TRANSPLANT COORDINATOR shunt in place COMPARISON: None available. TECHNIQUE: Axial computed tomography images were obtained through the head/brain without intravenous contrast. Radiation dose: Total exam DLP = 1105.68 mGy-cm. This CT exam was performed using one or more of the following dose reduction techniques: Automated exposure control, adjustment of the mA and/or kV according to patient size, and/or use of iterative reconstruction technique. FINDINGS: HEMORRHAGE: No intracranial hemorrhage. BRAIN: No mass effect or edema. Extensive right cerebellar hemispheric encephalomalacia change. Possible old infarct. Right frontal ventriculostomy catheter. . Small old bilateral caudate head lacunar infarcts. Mild chronic periventricular white matter ischemic change. Patchy deep white matter ischemic change. VENTRICLES: Unremarkable. No hydrocephalus. CALVARIUM: Unremarkable. PARANASAL SINUSES: Unremarkable as visualized. No significant inflammatory changes. MASTOID AIR CELLS: Unremarkable as visualized. No inflammatory changes. OTHER FINDINGS: None. IMPRESSION: No intracranial hemorrhage. Old right cerebellar hemispheric encephalomalacia. Right frontal ventriculostomy catheter. Mild chronic white matter ischemic change.
--- NOTE | 2017-09-14 16:16 | CT ---
PROCEDURE: CT Cervical Spine without contrast HISTORY: trauma, neck pain COMPARISON: None available. TECHNIQUE: Axial computed tomography images were obtained of the cervical spine without the use of intravenous contrast. Coronal and sagittal reformatted images were created and reviewed. Radiation dose: Total exam DLP = 630.22 mGy-cm. This CT exam was performed using one or more of the following dose reduction techniques: Automated exposure control, adjustment of the mA and/or kV according to patient size, and/or use of iterative reconstruction technique. FINDINGS: VERTEBRAE: Vertebral bodies maintained height. There is straightening of the normal lordotic curvature indicating possible muscular spasm. There is grade 1 retrolisthesis at C5-6 with mild narrowing of the disc space and large anterior osteophytes, consistent with degenerative disc disease. Normal alignment is maintained elsewhere. The remaining intervertebral disc spaces are maintained in height. There are several bony fragment adjacent to the posterior aspect of the C7 spinous process, possibly the result of old ununited fracture fragments or developmental in origin. No evidence of acute fracture. The atlantoaxial articulation and odontoid process are intact. DISCS/SPINAL CANAL/NEURAL FORAMINA: There is mild central spinal stenosis at C4-5 and moderate central spinal stenosis at C5-6. PARASPINAL SOFT TISSUES: Unremarkable. OTHER FINDINGS: None. IMPRESSION: No acute fracture. Probable degenerative retrolisthesis at C5-6 associated with C5-6 degenerative disc disease. Mild central spinal stenosis C4-5 and moderate central spinal stenosis C5-6. Possible old ununited fracture posterior C7 spinous process versus developmental anomaly.
== END 2017-09-14 16:48 | disposition home or self-care (01) ==
LOC: C.ER 14:01
DX: S09.90XA Unspecified injury of head, initial encounter (principal); S16.1XXA Strain of muscle, fascia and tendon at neck level, initial encounter; W18.30XA Fall on same level, unspecified, initial encounter

== ENCOUNTER 2018-07-08 09:37 | Emergency (ER) | payer MEDICARE ==
[2018-07-08 09:56] VITALS: BMI 33.0
[2018-07-08] MEDS ORDERED: ceFAZolin 1 gm in NS 1 GM/100 ML BAG IVPB ONE (13:22)
--- NOTE | 2018-07-08 14:35 | C.PDOC ---
History Of Present Illness 48 y/o male with a PMHx of diabetes presents to the ED for evaluation of a laceration to his left 4th toe. Patient states he was helping someone with a car a few days ago and cut his toe but did not realize it right away. He now complains of increasing pain and redness to the left 4th toe, with laceration to the bottom of the toe. Otherwise he denies any numbness, tingling, or extremity weakness. Time Seen by Provider: 07/08/18 10:03 Chief Complaint (Nursing): Abnormal Skin Integrity History Per: Patient History/Exam Limitations: no limitations Onset/Duration Of Symptoms: Days (3) Current Symptoms Are (Timing): Still Present Past Medical History Reviewed: Historical Data, Nursing Documentation, Vital Signs Vital Signs: Last Vital Signs Temp 98.9 F 07/08/18 09:56 Pulse 109 H 07/08/18 09:56 Resp 16 07/08/18 09:56 BP 148/99 H 07/08/18 09:56 Pulse Ox 98 07/08/18 09:56 - Medical History PMH: Diabetes, HTN, Hypercholesterolemia - [facility] Procedures EXCISION OF STOMACH, ENDO, DIAGN (08/16/16) Family History: States: Unknown Family Hx - Social History Hx Tobacco Use: No Hx Alcohol Use: No Hx Substance Use: No - Immunization History Hx Tetanus Toxoid Vaccination: No Hx Influenza Vaccination: No Hx Pneumococcal Vaccination: No Review Of Systems Constitutional: Negative for: Fever, Chills, Weakness Eyes: Negative for: Redness, Other (scleral icterus) ENT: Negative for: Mouth Swelling Cardiovascular: Negative for: Chest Pain Respiratory: Negative for: Cough, Shortness of Breath Gastrointestinal: Negative for: Nausea, Vomiting, Diarrhea Musculoskeletal: Positive for: Foot Pain Skin: Positive for: Rash (foot), Lesions (laceration to bottom of left toe) Neurological: Negative for: Weakness, Numbness, Incoordination Physical Exam - Physical Exam Appears: Non-toxic, No Acute Distress Skin: Warm, Dry Head: Atraumatic, Normacephalic Eye(s): bilateral: Normal Inspection (no scleral icterus), PERRL, EOMI Oral Mucosa: Moist Neck: Normal ROM Chest: Symmetrical Respiratory: No Accessory Muscle Use, Other (Normal inspiratory effort) Extremity: Normal ROM (of all digits), Capillary Refill (< 2 sec), No Deformity, No Swelling (proximally to left foot), Other (Laceration noted to bottom of left 4th toe, with scant discharge; Macerated skin to both adjacent web spaces, (+) Erythema and increased warmth to dorsal aspect of left foot) Pulses: Left Dorsalis Pedis: Normal, Right Dorsalis Pedis: Normal Neurological/Psych: Oriented x3, Normal Cranial Nerves Gait: Steady ED Course And Treatment O2 Sat by Pulse Oximetry: 98 (RA) Pulse Ox Interpretation: Normal Medical Decision Making Medical Decision Making: Impression: Cellulitis Initial Plan: - 1000mg IV Ancef in NS given in the ED - 50 mg PO Tramadol given for pain - Wound culture sent Patient will be discharged home with PO antibiotics. Disposition Counseled Patient/Family Regarding: Diagnosis, Need For Followup, Rx Given - Disposition Referrals: [facility] [Outside] [facility] [place] Disposition: HOME/ ROUTINE Disposition Time: 15:32 Condition: STABLE Prescriptions: Cephalexin [cephalexin] 500 mg PO TID 30 Days cap Sulfamethoxazole/Trimethoprim [Bactrim Ds Tablet] 1 tab PO BID 20 Days tablet Instructions: Cellulitis (Skin Infection), Adult (DC) Forms: Gen Discharge Inst Marshallese, [facility] (Marshallese), Work Excuse Print Language: GREENLANDIC - Clinical Impression Clinical Impression: Cellulitis - PA / 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 - Scribe Statement The provider has reviewed the documentation as recorded by the Scribe Manda Jones All medical record entries made by the Scribe were at my direction and personally dictated by me. I have reviewed the chart and agree that the record accurately reflects my personal performance of the history, physical exam, medical decision making, and the department course for this patient. I have also personally directed, reviewed, and agree with the discharge instructions and disposition.
[2018-07-08 15:08] VITALS: BP 138/83; PULSE 115; RESP 20; TEMP 99.8
[2018-07-08] MEDS ORDERED: Tmp-Smz 800 mg-160 mg DS Tab PO STA (15:30)
[2018-07-08 15:35] VITALS: O2SAT 98
[2018-07-08] MEDS ORDERED: Tmp-Smz 800 mg-160 mg DS Tab ONE (15:40)
[2018-07-08] MEDS ORDERED: Tdap Vaccine 0.5 ml Vial (10-64 yrs) IM ONE ×2 (15:41→15:53)
== END 2018-07-08 16:05 | disposition home or self-care (01) ==
LOC: C.ER 09:37
DX: L03.032 Cellulitis of left toe (principal)
CPT/HCPCS: 87070; 90471; 90715; 96365; 99284; J0690